=== PATIENT | female | born 1935 | race Caucasian/White ===

== ENCOUNTER 2018-12-28 06:22 | Inpatient (IN) | payer OTHER, MEDICARE ==
[~2018-12-28 06:22] MED LIST: ACETAMINOPHEN 325 MG TABLET PO PRN; CEFAZOLIN SODIUM 2 GM in DEXTROSE 5%-WATER 100 ML IV PRN; CELECOXIB 200 MG CAPSULE PO PRN; GABAPENTIN 100 MG CAPSULE PO PRN; LACTATED RINGERS 1000 ML IV PRN; LIDOCAINE 0.5% INJ-PF (5 MG/ML) 50 ML SDV SUBCUT PRN; ONDANSETRON HCL INJ/PF 4 MG/2 ML SDV IV PRN; OXYCODONE HCL SR 10 MG TABLET PO PRN; SCOPOLAMINE HYDROBROMIDE 1.5 MG PATCH.TD72 TD PRN; TRAMADOL HCL 50 MG TABLET PO PRN; TRANEXAMIC ACID 1,000 MG in DEXTROSE 5%-WATER 50 ML IV PRN; TRANEXAMIC ACID INJ/PF 1,000 MG/10 ML SDV IV PRN; VANCOMYCIN HCL 1,000 MG in DEXTROSE 5%-WATER 250 ML IV PRN
[2018-12-28] MEDS ORDERED: CLINDAMYCIN 900 MG/D5W RTU 900 MG/50 ML RTUPB IV PRN (11:02)
[2018-12-28] MEDS ORDERED: ONDANSETRON HCL INJ/PF 4 MG/2 ML SDV ONE ×2 (11:35→12:15)
[2018-12-28] MEDS ORDERED: TRAMADOL HCL 50 MG TABLET ONE (11:35)
[2018-12-28] MEDS ORDERED: OXYCODONE HCL SR 10 MG TABLET PO ONE (11:35)
[2018-12-28] MEDS ORDERED: GABAPENTIN 100 MG CAPSULE ONE (11:35)
[2018-12-28] MEDS ORDERED: ACETAMINOPHEN 325 MG TABLET ONE (11:35)
[2018-12-28] MEDS ORDERED: CLINDAMYCIN 900 MG/D5W RTU 900 MG/50 ML RTUPB IV ONE (11:36)
[2018-12-28] MEDS ORDERED: KETAMINE HCL INJ 500 MG/10 ML VIAL ONE (12:05)
[2018-12-28] MEDS ORDERED: EPINEPHRINE INJ/PF 1 MG/1 ML AMPULE ONE (12:05)
[2018-12-28] MEDS ORDERED: FENTANYL CITRATE INJ/PF 100 MCG/2 ML AMPUL ONE (12:06)
[2018-12-28] MEDS ORDERED: MIDAZOLAM 2 MG/2 ML INJ ONE (12:06)
[2018-12-28] MEDS ORDERED: PROPOFOL INJ 200 MG/20 ML VIAL IV ONE (12:07)
[2018-12-28] MEDS ORDERED: BUPIVACAINE HCL 0.25 % INJ/PF (2.5 MG/1 ML) 30 ML VIAL ONE (12:08)
[2018-12-28] MEDS ORDERED: VANCOMYCIN HCL INJ 1000 MG VIAL ONE (12:08)
[2018-12-28] MEDS ORDERED: GENTAMICIN SULFATE INJ 80 MG/2 ML VIAL ONE (12:09)
[2018-12-28] MEDS ORDERED: BACITRACIN INJ 50,000 UNIT VIAL ONE (12:09)
[2018-12-28] MEDS ORDERED: KETOROLAC TROMETHAMINE 60 MG/2 ML SDV ONE (12:10)
[2018-12-28] MEDS ORDERED: TRANEXAMIC ACID INJ/PF 1,000 MG/10 ML SDV ONE ×2 (12:15→15:08)
[2018-12-28] MEDS ORDERED: BACITRACIN INJ 50,000 UNIT VIAL IR ONE (13:37)
[2018-12-28] MEDS ORDERED: GENTAMICIN SULFATE INJ 80 MG/2 ML VIAL IV ONE (13:38)
[2018-12-28] MEDS ORDERED: BUPIVACAINE HCL 0.5 % INJ/PF 30 ML SDV INJ ONE (13:38)
[2018-12-28] MEDS ORDERED: KETOROLAC TROMETHAMINE INJ/PF 30 MG/1 ML SDV INJ ONE (13:39)
[2018-12-28] MEDS ORDERED: PROMETHAZINE HCL INJ 25 MG/1 ML VIAL IV PRN ×2 (14:36)
[2018-12-28] MEDS ORDERED: MEPERIDINE HCL/PF INJ 25 MG/1 ML DISP.SYRIN IV PRN (14:36)
[2018-12-28] MEDS ORDERED: FENTANYL CITRATE INJ/PF 100 MCG/2 ML AMPUL IV PRN ×3 (14:36)
[2018-12-28] MEDS ORDERED: DIPHENHYDRAMINE HCL 50 MG/ML VIAL IV PRN (14:36)
[2018-12-28] MEDS ORDERED: MORPHINE SULFATE 10 MG/ML INJ IV PRN (14:36)
[2018-12-28] MEDS ORDERED: DIPHENHYDRAMINE HCL 25 MG CAPSULE PO PRN (14:39)
[2018-12-28] MEDS ORDERED: (PENDING PHARMACY ID) (Fluticasone Propionate [Flonase Allergy Relief] 2 SPRAY) NASL PRN (14:39)
[2018-12-28] MEDS ORDERED: LEVALBUTEROL HCL NEB 0.63 MG/3 ML AMPUL NEB PRN (14:39)
--- NOTE | 2018-12-28 14:43 | RADIOLOGY REPORT (SQ) ---
EXAM DESCRIPTION: NO CHG FLUORO; HIP IN OPERATING RM COMPLETED DATE/TIME: 12/28/2018 2:31 pm REASON FOR STUDY: RIGHT HIP TOTAL ARTHOPLASTY, ASSISTED WITH FLUORO IN OR COMPARISON: None. FLUOROSCOPY TIME: No recorded fluoro time 3 Images saved to PACS LIMITATIONS: None. PROCEDURE: Right total hip replacement FINDINGS: Images from fluoro document right total hip replacement. IMPRESSION: Total hip replacement. Refer to operative note for further information. COMMENT: PQRS 6045F: Fluoroscopy time of the procedure is documented in the report. TECHNICAL DOCUMENTATION: JOB ID: [id number] [employer]- All Rights Reserved Reading location - IP/workstation name: [email or web address]
--- NOTE | 2018-12-28 14:43 | RADIOLOGY REPORT (SQ) ---
EXAM DESCRIPTION: NO CHG FLUORO; HIP IN OPERATING RM COMPLETED DATE/TIME: 12/28/2018 2:31 pm REASON FOR STUDY: RIGHT HIP TOTAL ARTHOPLASTY, ASSISTED WITH FLUORO IN OR COMPARISON: None. FLUOROSCOPY TIME: No recorded fluoro time 3 Images saved to PACS LIMITATIONS: None. PROCEDURE: Right total hip replacement FINDINGS: Images from fluoro document right total hip replacement. IMPRESSION: Total hip replacement. Refer to operative note for further information. COMMENT: PQRS 6045F: Fluoroscopy time of the procedure is documented in the report. TECHNICAL DOCUMENTATION: JOB ID: [id number] [employer]- All Rights Reserved Reading location - IP/workstation name: [email or web address]
[2018-12-28] MEDS ORDERED: ACETAMINOPHEN 325 MG TABLET PO SCH (14:45)
[2018-12-28] MEDS ORDERED: (PENDING PHARMACY ID) (Ranitidine Hcl [Zantac] 150 MG) PO PRN (14:45)
--- NOTE | 2018-12-28 15:08 | Operative Report ---
Operative Report DATE OF SURGERY: 12/28/18 PREOPERATIVE DIAGNOSIS: Right hip primary osteoarthritis POSTOPERATIVE DIAGNOSIS: Right hip primary osteoarthritis OPERATION: Right total hip arthroplasty SURGEON: DAVID BELL JR ANESTHESIA: Spinal COMPLICATIONS: None ESTIMATED BLOOD LOSS: 150 cc PROCEDURE: BRIEF HISTORY: 83year old female with severe degenerative arthritis of right hip, which has failed conservative treatment and has elected for a total hip arthroplasty due to loss of her ability to perform activities of daily living and her difficulty with ambulation, leading to a decreased quality of life. X- rays revealed [id number] osteoarthritis with subchondral sclerosis joint space narrowing and osteophyte formation. Risks include but are not limited to bleeding, infection, anesthesia, , injury to nerve or vessel, pain, scar, leg length inequality, dislocation, future surgery, and blood clots. Patient read through the pre-op counseling form and signed and solicited for surgery on their right hip. OPERATIVE PROCEDURE: Patient was brought to the operating room on and underwent spinal anesthesia. Clindamycin and 1 g vancomycin was given. After proper anesthesia was obtained, patient was positioned, padded, prepped, and draped in the usual sterile fashion on the operating room table. Appropriate time out was performed. A anterior approach to the hip was undertaken with meticulous hemostasis. The femoral neck was cut in line with the femoral broach and the femoral head was removed. The acetabulum was then exposed with three retractors in an atraumatic fashion. Soft tissue and osteophytes were removed. Medialization reaming was performed followed by anatomic reaming up to accept a 48 mm acetabulum. The 48 mm acetabulum was impacted into correct position and stability checked with Richard test. A 36 liner was impacted into the shell with good stability. Potential impinging osteophytes were removed. Attention was then directed toward the femur, which was exposed with two retractors in an atraumatic fashion. molded rubber goods cutter, lateralization rasping and then broaching up to accept a 5 femur. With a 127 offset neck and a -5 head, stability was good in flexion and extension with equal leg lengths. The real lateral offset femur was impacted into a copiously irrigated femoral canal. A 36, -5 mm head was impacted on a clean dry femoral taper. The hip was irrigated and reduced, further irrigation with antibiotic solution, betadine solution, then antibiotic solution. Bleeders were coagulated with bovie cautery. The fascia was then closed with number 2 Stratofix; the subcutaneous tissue closed with interrupted 2-0 Vicryl then running 3-0 monocryl subcuticular. Dermabond skin glue was applied followd by a silver dressing. All needle sponge and instrument counts were correct. Patient was awakened from sedation anesthesia and taken to recovery room in good condition. Thank you, David Bell, DO
--- NOTE | 2018-12-28 15:30 | RADIOLOGY REPORT (SQ) ---
EXAM DESCRIPTION: PELVIS AP COMPLETED DATE/TIME: 12/28/2018 3:23 pm REASON FOR STUDY: post op M16.11 UNILATERAL PRIMARY OSTEOARTHRITIS, RIGHT HIP COMPARISON: None. NUMBER OF VIEWS: One view TECHNIQUE: Digital radiographic images of the pelvis post-procedure LIMITATIONS: None. FINDINGS: BONES: No worrisome or unexpected findings post-procedure. DEVICE: There is been a total right hip arthroplasty. SOFT TISSUES: No worrisome findings. Expected postoperative soft tissue changes. IMPRESSION: Satisfactory postoperative right hip. TECHNICAL DOCUMENTATION: JOB ID: [id number] [employer]- All Rights Reserved Reading location - IP/workstation name: [email or web address]
[2018-12-28] MEDS ORDERED: PROMETHAZINE HCL INJ 25 MG/1 ML VIAL ONE (15:50)
--- NOTE | 2018-12-28 17:54 | PDOC CONSULTATION ---
Consultation Consult Date: 12/28/18 Attending physician:: CITLALY BELL JR Provider Consulted: JOVON NUNN Consult reason:: post-op History of Present Illness Admission Date/PCP: 12/28/18 09:58 History of Present Illness: RALPH MICHAEL is a 83 year old female who had a right hip replacement today with Dr. Bell. According to the report, she had a fairly uncomplicated course. Consult reasons as postop but I am assuming that this is for medical management. When I got up in the room to see the patient, she was about to do some physical therapy and she tolerated her short session fairly well. She has no complaints at this time. Past Medical History Cardiac Medical History: Denies: Myocardial Infarction, Hyperlipidema, Hypertension, Pulmonary Embolism Pulmonary Medical History: Reports: Chronic Obstructive Pulmonary Disease (COPD), Sleep Apnea - uses CPAP Denies: Asthma, Bronchitis, Pneumonia, Respiratory Failure, Tuberculosis Neurological Medical History: Denies: Seizures Endocrine Medical History: Denies: Hyperthyroidism, Hypothyroidism Renal/ Medical History: Denies: End Stage Renal Disease Malignancy Medical History: Denies: Leukemia, Lung Cancer GI Medical History: Reports: Gastroesophageal Reflux Disease Denies: Crohn's Disease, Hiatal Hernia Musculoskeltal Medical History: Reports: Arthritis Denies: Fibromyalgia Psychiatric Medical History: Denies: Bipolar Disorder, Depression, Post Traumatic Stress Disorder Hematology: Reports: Anemia - off and on Denies: Hemophilia, Sickle Cell Disease Infectious Medical History: Denies: HIV Past Surgical History Past Surgical History: Reports: Cholecystectomy, Tonsillectomy Denies: Amputation, Appendectomy, Section, Colostomy, Coronary Artery Bypass Graft, Gastric Bypass Surgery, Herniorrhaphy, Hysterectomy, Mastectomy, Pacemaker, Tubal Ligation Social History Smoking Status: Former Smoker Hx Recreational Drug Use: No Hx Prescription Drug Abuse: No - Advance Directive Resuscitation Status: Full Code Family History Parental Family History Reviewed: Yes Children Family History Reviewed: Yes Sibling(s) Family History Reviewed.: Yes Medication/Allergy Home Medications: Acetaminophen [Tylenol] 650 mg PO DAILY 12/21/18 Aclidinium [place] [Tudorza Pressair] 1 puff IN DAILY 12/21/18 Budesonide/Formoterol Fumarate [Symbicort HFA 160-4.5 mcg Inhaler 6 gm] 2 puff IN DAILY 12/21/18 Diclofenac Sodium [Voltaren] 1 dose TOP ASDIR PRN 12/21/18 Diphenhydramine HCl [Benadryl] 25 mg PO PRN PRN 12/21/18 Ergocalciferol (Vitamin D2) [Vitamin D2] 1.25 mg PO DAILY 12/21/18 Fexofenadine HCl [Daphnie] 180 mg PO DAILY 12/21/18 Fluticasone Propionate [Flonase Allergy Relief] 1 spray NAREB PRN PRN 12/21/18 Levalbuterol HCl 1 puff IN PRN PRN 12/21/18 Ranitidine HCl [Zantac] 150 mg PO DAILY 12/21/18 Zolpidem Tartrate [Ambien 5 mg Tablet] 5 mg PO QHS 12/21/18 Allergies/Adverse Reactions: amoxicillin Allergy (Verified 12/28/18 10:33) Sneezing cephalexin Allergy (Verified 12/28/18 10:33) Sneezing ciprofloxacin [From Cipro] Allergy (Verified 12/28/18 10:33) doxycycline Allergy (Verified 12/28/18 10:33) fluticasone [From Advair Diskus] Allergy (Verified 12/28/18 10:33) lactase [From Dairy Aid] Allergy (Verified 12/28/18 10:33) methylprednisolone Allergy (Verified 12/28/18 10:33) Penicillins Allergy (Verified 12/28/18 10:33) salmeterol [From Advair Diskus] Allergy (Verified 12/28/18 10:33) Sulfa (Sulfonamide Antibiotics) Allergy (Verified 12/28/18 10:33) Tetanus Vaccines and Toxoid Allergy (Verified 12/28/18 10:33) Yeast Allergy (Verified 12/28/18 10:33) Review of Systems All systems: reviewed and no additional remarkable complaints except as stated - All systems were reviewed and were negative except as noted in the HPI Physical Exam Vital Signs: Temp Pulse Resp BP Pulse Ox 97.7 F 67 16 128/48 H 96 12/28/18 14:28 12/28/18 16:28 12/28/18 16:28 12/28/18 16:28 12/28/18 16:28 Intake & Output 12/27/18 12/28/18 12/29/18 06:59 06:59 06:59 Intake Total 1700 Output Total 150 Balance 1550 General appearance: PRESENT: no acute distress, cooperative, disheveled, thin Head exam: PRESENT: atraumatic, normocephalic Eye exam: PRESENT: EOMI, PERRLA. ABSENT: conjunctival injection, nystagmus, scleral icterus Ear exam: PRESENT: normal external ear exam Mouth exam: PRESENT: moist, neck supple Throat exam: ABSENT: post pharyngeal erythema Neck exam: PRESENT: full ROM. ABSENT: carotid bruit, JVD, lymphadenopathy, meningismus, tenderness, thyromegaly Respiratory exam: PRESENT: clear to auscultation rodrigo, symmetrical, unlabored. ABSENT: accessory muscle use, chest wall tenderness, crackles, prolonged expiratory phas, rhonchi, tachypnea, wheezes Cardiovascular exam: PRESENT: RRR, +S1, +S2 Pulses: PRESENT: normal carotid pulses, normal femoral pulses GI/Abdominal exam: PRESENT: normal bowel sounds, soft. ABSENT: distended, guarding, rebound, tenderness Extremities exam: ABSENT: clubbing, pedal edema Musculoskeletal exam: PRESENT: ambulatory - With a walker and standby assistance, other - She had a rather impressive kyphosis, as well as what appeared to be a bit of dextroscoliosis with her pelvis tilted a bit to the left and her left leg below the knee seemed to display a varus deformity Neurological exam: PRESENT: alert, awake, oriented to person, oriented to place, oriented to situation, CN II-XII grossly intact. ABSENT: motor sensory deficit Psychiatric exam: PRESENT: appropriate affect, normal mood Skin exam: PRESENT: dry, warm Results Impressions: Fluoroscopy 12/28/18 00:00 IMPRESSION: Total hip replacement. Refer to operative note for further information. Hip X-Ray 12/28/18 00:00 IMPRESSION: Total hip replacement. Refer to operative note for further information. Pelvis X-Ray 12/28/18 00:00 IMPRESSION: Satisfactory postoperative right hip. Assessment and Plan - Diagnosis (1) COPD (chronic obstructive pulmonary disease) Qualifiers: COPD type: chronic bronchitis Chronic bronchitis type: simple Qualified Code(s): J41.0 - Simple chronic bronchitis Is this a current diagnosis for this admission?: Yes Plan: We will continue her home medications (2) Gastroesophageal reflux Qualifiers: Esophagitis presence: without esophagitis Qualified Code(s): K21.9 - Gastro-esophageal reflux disease without esophagitis Is this a current diagnosis for this admission?: Yes Plan: Continue home medications (3) Environmental allergies Is this a current diagnosis for this admission?: Yes Plan: Continue home medications (4) Status post total hip replacement, right Is this a current diagnosis for this admission?: Yes Plan: Per orthopedics - Time Time Spent with patient: 35 or more minutes
[2018-12-28] MEDS ORDERED: FLUTICASONE NASAL SPRAY 50 MCG/SPRY 120 SPRAY/16 GM NASL PRN (20:42)
[2018-12-28] MEDS ORDERED: LORATADINE 10 MG TABLET PO PRN (20:47)
[2018-12-28] MEDS: ZOLPIDEM TARTRATE 5 MG TABLET PO SCH (21:42)
[2018-12-28] MEDS ORDERED: INFLUENZA QUAD (6MOS+) 2019-20 VAC 0.5 ML SYR IM ONE (21:53)
[2018-12-29] MEDS ORDERED: (PENDING PHARMACY ID) (Ergocalciferol (Vitamin D2) [Vitamin D2] 1.25 MG) PO SCH (10:00)
[2018-12-29] MEDS ORDERED: (PENDING PHARMACY ID) (Aclidinium Bromide [Tudorza Pressair] 1 PUFF) IH SCH (10:00)
--- NOTE | 2018-12-29 10:15 | PDOC PROGRESS REPORT ---
Subjective Progress Note for:: 12/29/18 Reason For Visit: S/P RIGHT TOTAL HIP ARTHROPLASTY 12/29/2018 Patient was admitted to the hospital for right hip arthroplasty. She is being seen by the hospitalist for medical management. Patient's chart reviewed. Patient seen this morning while ambulating with the assistance of physical therapy Physical Exam Vital Signs: Temp Pulse Resp BP Pulse Ox 99.5 F 95 24 H 93/55 L 90 L 12/29/18 09:00 12/29/18 09:00 12/29/18 09:00 12/29/18 09:00 12/29/18 09:00 Intake & Output 12/28/18 12/29/18 12/30/18 06:59 06:59 06:59 Intake Total 2940 Output Total 150 Balance 2790 Weight 58.7 kg General appearance: PRESENT: no acute distress Respiratory exam: PRESENT: clear to auscultation rodrigo, other - Patient does not appear to be short of breath while using the walker. ABSENT: rales, rhonchi, wheezes Cardiovascular exam: PRESENT: RRR. ABSENT: diastolic murmur, rubs, systolic murmur Neurological exam: PRESENT: alert, awake, oriented to person, oriented to place, oriented to time, oriented to situation, CN II-XII grossly intact. ABSENT: motor sensory deficit Psychiatric exam: PRESENT: appropriate affect, normal mood. ABSENT: homicidal ideation, suicidal ideation Results Impressions: Fluoroscopy 12/28/18 00:00 IMPRESSION: Total hip replacement. Refer to operative note for further information. Hip X-Ray 12/28/18 00:00 IMPRESSION: Total hip replacement. Refer to operative note for further information. Pelvis X-Ray 12/28/18 00:00 IMPRESSION: Satisfactory postoperative right hip. Assessment and Plan - Diagnosis (1) COPD (chronic obstructive pulmonary disease) Qualifiers: COPD type: chronic bronchitis Chronic bronchitis type: simple Qualified Code(s): J41.0 - Simple chronic bronchitis Is this a current diagnosis for this admission?: Yes (2) Gastroesophageal reflux Qualifiers: Esophagitis presence: without esophagitis Qualified Code(s): K21.9 - Gastro-esophageal reflux disease without esophagitis Is this a current diagnosis for this admission?: Yes (3) Status post total hip replacement, right Is this a current diagnosis for this admission?: Yes - Plan Summary Summary: 12/29/2018 Patient remains afebrile, blood pressure appears stable averaging around 145/50 no blood pressure medication Patient's only meds from home appear to be for her COPD Patient's O2 sats remain in the mid 90s on room air. I do not think patient will qualify for home O2, it would be difficult to get a true assessment now that she is recovering from hip surgery with a walker Patient appears as though she will benefit from rehab at the time of discharge. Will follow patient with orthopedics until patient is further stabilized. - Time Time Spent with patient: 25-34 minutes
--- NOTE | 2018-12-29 11:12 | PDOC PROGRESS REPORT ---
Subjective Progress Note for:: 12/29/18 Subjective:: Patient is doing very well this morning. She does report some ache in the hip but not as much as she is expected. Otherwise no acute events overnight she is been ambulating without problems and overall has no other new complaints or symptoms. Reason For Visit: S/P RIGHT TOTAL HIP ARTHROPLASTY Physical Exam Vital Signs: Temp Pulse Resp BP Pulse Ox 99.5 F 95 24 H 93/55 L 90 L 12/29/18 09:00 12/29/18 09:00 12/29/18 09:00 12/29/18 09:00 12/29/18 09:00 Intake & Output 12/28/18 12/29/18 12/30/18 06:59 06:59 06:59 Intake Total 2940 Output Total 150 Balance 2790 Weight 58.7 kg Physical Exam: General appearance: PRESENT: no acute distress, cooperative, well-nourished Head exam: PRESENT: atraumatic, normocephalic Eye exam: PRESENT: EOMI Ear exam: PRESENT: normal external ear exam Mouth exam: PRESENT: neck supple Neck exam: ABSENT: tracheal deviation Respiratory exam: PRESENT: symmetrical, unlabored. ABSENT: accessory muscle use, wheezes Pulses: PRESENT: normal radial pulses, normal dorsalis pedis pul Vascular exam: PRESENT: normal capillary refill GI/Abdominal exam: ABSENT: distended, firm Extremities exam: PRESENT: full ROM of bilateral shoulders, elbows wrists, knees, hips and ankles without pain Musculoskeletal exam: PRESENT: full ROM, normal inspection of all 4 extremities aside from that noted below. Neurological exam: PRESENT: alert, awake, oriented to person, oriented to place, oriented to time Psychiatric exam: PRESENT: appropriate affect. ABSENT: agitated Focused psych exam: ABSENT: catatonic Skin exam: PRESENT: intact. ABSENT: dry All as above aside from that noted in the HPI and the following: Right lower extremity -Pulses 2+ distally -Compartments soft -Wound clean dry and intact no drainage in appropriate swelling for postop day -Sensation grossly intact to L3-4-5 S1 -Motor grossly intact to EHL TA gastroc and quad - Able to perform quad extension and elevate heel off of bed. Results Impressions: Fluoroscopy 12/28/18 00:00 IMPRESSION: Total hip replacement. Refer to operative note for further information. Hip X-Ray 12/28/18 00:00 IMPRESSION: Total hip replacement. Refer to operative note for further information. Pelvis X-Ray 12/28/18 00:00 IMPRESSION: Satisfactory postoperative right hip. Assessment & Plan - Diagnosis (1) Status post total hip replacement, right Is this a current diagnosis for this admission?: Yes Plan: -She is orthopedically stable for discharge today depending on placement, if she insists upon going to rehab that she will need to stay further for insurance purposes. -2 doses of Clindamycin postoperatively q 8 hours to complete 24 hours perioperatively -Weightbearing as tolerated, no precautions, encourage out of bed KARLY for ADL training - PT/OT -aspirin 325 daily for DVT prophylaxis for 6 weeks -multimodal pain management to avoid excessive narcotics, including gabapentin, tramadol, Toradol, acetaminophen. -Dressing should not be removed for 7 to 10 days until seen in the office -May shower with the dressing intact, if it starts to come off she should not get the incision wet. -I would like to follow the patient my office within the next 7 to [address] at [address] [place] [address]. in [place] office #: [phone] - Time Time Spent with patient: Less than 15 minutes
[2018-12-29] MEDS ORDERED: OXYCODONE HCL IR 5 MG TABLET PO PRN ×2 (11:37→11:40)
[2018-12-29] MEDS ORDERED: MORPHINE SULFATE 10 MG/ML INJ IV PRN (11:42)
[2018-12-29] MEDS ORDERED: TRAMADOL HCL 50 MG TABLET PO PRN (11:43)
[2018-12-29] MEDS ORDERED: DIPHENHYDRAMINE HCL 25 MG CAPSULE PO PRN (11:52)
[2018-12-29] MEDS ORDERED: DOCUSATE SODIUM 100 MG CAPSULE PO PRN (11:56)
[2018-12-29] MEDS ORDERED: ONDANSETRON HCL 8 MG TABLET PO PRN (11:57)
[2018-12-29] MEDS ORDERED: PANTOPRAZOLE SODIUM 20 MG TABLET.DR PO ONE ×2 (12:30→14:45)
[2018-12-29] MEDS ORDERED: ONDANSETRON 4 MG TAB.RAPDIS PO PRN (12:32)
[2018-12-29] MEDS: NORMAL SALINE 1000 ML 1,000 ML IV PRN (12:35)
[2018-12-29] MEDS: FLUTICASONE/VILANTEROL 200-25 MCG/DOSE IH SCH (14:22)
[2018-12-29] MEDS: ACETAMINOPHEN 325 MG TABLET PO SCH ×2 (14:41→21:57)
[2018-12-29] MEDS: KETOROLAC TROMETHAMINE INJ/PF 30 MG/1 ML SDV IV SCH ×2 (14:42→21:56)
[2018-12-29] MEDS: CEFAZOLIN SODIUM 2 GM in DEXTROSE 5%-WATER 100 ML IV SCH ×2 (14:43→21:56)
[2018-12-29] MEDS ORDERED: POLYETHYLENE GLYCOL 3350 POWDER 17 GM/1 PACKET PO ONE (17:15)
[2018-12-29] MEDS: GABAPENTIN 100 MG CAPSULE PO SCH (17:46)
[2018-12-29] MEDS: ZOLPIDEM TARTRATE 5 MG TABLET PO SCH (21:58)
[2018-12-30] MEDS: NORMAL SALINE 1000 ML 1,000 ML IV PRN (02:17)
[2018-12-30] MEDS: KETOROLAC TROMETHAMINE INJ/PF 30 MG/1 ML SDV IV SCH ×2 (05:46→14:24)
[2018-12-30] MEDS: ACETAMINOPHEN 325 MG TABLET PO SCH ×3 (05:46→22:15)
--- NOTE | 2018-12-30 08:31 | PDOC PROGRESS REPORT ---
Subjective Subjective:: Patient is doing very well this morning. She does report some ache in the hip but not as much as she is expected. Otherwise no acute events overnight she is been ambulating without problems and overall has no other new complaints or symptoms. She was walking well yesterday with PT and now able to put more weight on the leg than she was able to prior to surgery, according to her. Reason For Visit: S/P RIGHT TOTAL HIP ARTHROPLASTY Physical Exam Vital Signs: Temp Pulse Resp BP Pulse Ox 98.5 F 83 18 121/47 L 93 12/29/18 17:00 12/29/18 17:00 12/29/18 17:00 12/29/18 17:00 12/29/18 17:00 Intake & Output 12/29/18 12/30/18 12/31/18 06:59 06:59 06:59 Intake Total 2940 1820 Output Total 150 Balance 2790 1820 Weight 58.7 kg Physical Exam: General appearance: PRESENT: no acute distress, cooperative, well-nourished Head exam: PRESENT: atraumatic, normocephalic Eye exam: PRESENT: EOMI Ear exam: PRESENT: normal external ear exam Mouth exam: PRESENT: neck supple Neck exam: ABSENT: tracheal deviation Respiratory exam: PRESENT: symmetrical, unlabored. ABSENT: accessory muscle use, wheezes Pulses: PRESENT: normal radial pulses, normal dorsalis pedis pul Vascular exam: PRESENT: normal capillary refill GI/Abdominal exam: ABSENT: distended, firm Extremities exam: PRESENT: full ROM of bilateral shoulders, elbows wrists, knees, hips and ankles without pain Musculoskeletal exam: PRESENT: full ROM, normal inspection of all 4 extremities aside from that noted below. Neurological exam: PRESENT: alert, awake, oriented to person, oriented to place, oriented to time Psychiatric exam: PRESENT: appropriate affect. ABSENT: agitated Focused psych exam: ABSENT: catatonic Skin exam: PRESENT: intact. ABSENT: dry All as above aside from that noted in the HPI and the following: Right lower extremity -Pulses 2+ distally -Compartments soft -Wound clean dry and intact no drainage in appropriate swelling for postop day -Sensation grossly intact to L3-4-5 S1 -Motor grossly intact to EHL TA gastroc and quad - Able to perform quad extension and elevate heel off of bed. Results Impressions: Fluoroscopy 12/28/18 00:00 IMPRESSION: Total hip replacement. Refer to operative note for further information. Hip X-Ray 12/28/18 00:00 IMPRESSION: Total hip replacement. Refer to operative note for further information. Pelvis X-Ray 12/28/18 00:00 IMPRESSION: Satisfactory postoperative right hip. Assessment & Plan - Diagnosis (1) Status post total hip replacement, right Is this a current diagnosis for this admission?: Yes Plan: -She is orthopedically stable for discharge today depending on placement, if she insists upon going to rehab that she will need to stay further for insurance purposes. -Perioperative antibiotics completed -Weightbearing as tolerated, no precautions, encourage out of bed KARLY for ADL training - PT/OT -aspirin 325 daily for DVT prophylaxis for 6 weeks -multimodal pain management to avoid excessive narcotics, including gabapentin, tramadol, Toradol, acetaminophen. -Dressing should not be removed for 7 to 10 days until seen in the office -May shower with the dressing intact, if it starts to come off she should not get the incision wet. -I would like to follow the patient my office within the next 7 to [address] days at [address] [place] [address]. in [place] office #: [phone] - Time Time Spent with patient: Less than 15 minutes
[2018-12-30 08:34] LABS: ABSOLUTE BASOPHILS # (AUTO) 0.1 10^3/uL (0.0-0.2); ABSOLUTE EOSINOPHILS # (AUTO) 0.4 10^3/uL (0.0-0.6); ABSOLUTE LYMPHOCYTES (AUTO) 0.9 10^3/uL (0.5-4.7); ABSOLUTE MONOCYTES (AUTO) 0.7 10^3/uL (0.1-1.4); ABSOLUTE NEUT (AUTO) 4.3 10^3/uL (1.7-8.2); BASOPHILS % (AUTO) 0.9 % (0-2); EOSINOPHILS % (AUTO) 6.1 % (0-6); HEMATOCRIT 22.1 % (36.0-47.0); LYMPHOCYTES % (AUTO) 13.4 % (13-45); MEAN CORPUSCULAR HEMOGLOBIN 32.9 pg (27.0-33.4); MEAN CORPUSCULAR HGB CONC 33.7 g/dL (32.0-36.0); MEAN CORPUSCULAR VOLUME 98 fl (80-97); PLATELET COUNT 112 10^3/uL (150-450); RED BLOOD COUNT 2.26 10^6/uL (3.72-5.28); RED CELL DISTRIBUTION WIDTH 13.4 % (11.5-14.0); SEGMENTED NEUTROPHILS % (AUTO) 68.6 % (42-78); TOTAL CELLS COUNTED % (AUTO) 100 %; WHITE BLOOD COUNT 6.3 10^3/uL (4.0-10.5)
[2018-12-30 08:43] LABS: HEMOGLOBIN 7.4 g/dL (12.0-15.5)
[2018-12-30 09:02] LABS: ANION GAP 7 (5-19); BLOOD UREA NITROGEN 13 mg/dL (7-20); CARBON DIOXIDE 23 mmol/L (22-30); CHLORIDE 109 mmol/L (98-107); GLUCOSE 86 mg/dL (75-110); POTASSIUM 3.8 mmol/L (3.6-5.0)
[2018-12-30] MEDS: POLYETHYLENE GLYCOL 3350 POWDER 17 GM/1 PACKET PO SCH (10:40)
[2018-12-30] MEDS: GABAPENTIN 100 MG CAPSULE PO SCH ×2 (10:40→20:20)
[2018-12-30] MEDS: ASPIRIN 325 MG TABLET PO SCH ×2 (10:40→10:47)
[2018-12-30] MEDS: FLUTICASONE/VILANTEROL 200-25 MCG/DOSE IH SCH ×2 (10:41→10:51)
[2018-12-30] MEDS ORDERED: FLUTICASONE NASAL SPRAY 50 MCG/SPRY 120 SPRAY/16 GM NASL PRN (10:43)
[2018-12-30] MEDS: CELECOXIB 200 MG CAPSULE PO SCH (10:43)
[2018-12-30] MEDS ORDERED: LEVALBUTEROL HCL NEB 0.63 MG/3 ML AMPUL NEB PRN (10:43)
--- NOTE | 2018-12-30 10:43 | PDOC PROGRESS REPORT ---
Subjective Progress Note for:: 12/30/18 Reason For Visit: S/P RIGHT TOTAL HIP ARTHROPLASTY 12/30/2018 Status post right total hip arthroplasty on December 28/2019 Physical Exam Vital Signs: Temp Pulse Resp BP Pulse Ox 98.5 F 83 18 121/47 L 93 12/29/18 17:00 12/29/18 17:00 12/29/18 17:00 12/29/18 17:00 12/29/18 17:00 Intake & Output 12/29/18 12/30/18 12/31/18 06:59 06:59 06:59 Intake Total 2940 1820 Output Total 150 Balance 2790 1820 Weight 58.7 kg General appearance: PRESENT: no acute distress, other - Patient is up and ambulatory with less pain than prior to surgery Respiratory exam: PRESENT: clear to auscultation rodrigo. ABSENT: rales, rhonchi, wheezes Cardiovascular exam: PRESENT: RRR. ABSENT: diastolic murmur, rubs, systolic murmur Neurological exam: PRESENT: alert, awake, oriented to person, oriented to place, oriented to time, oriented to situation, CN II-XII grossly intact. ABSENT: mot or sensory deficit Psychiatric exam: PRESENT: appropriate affect, normal mood. ABSENT: homicidal ideation, suicidal ideation Results Laboratory Results: 12/30/18 08:01 12/30/18 08:01 12/30/18 12/30/18 08:01 08:01 WBC 6.3 RBC 2.26 L Hgb 7.4 L Hct 22.1 L MCV 98 H MCH 32.9 MCHC 33.7 RDW 13.4 Plt Count 112 L Seg Neutrophils % 68.6 Sodium 138.6 Potassium 3.8 Chloride 109 H Carbon Dioxide 23 Anion Gap 7 BUN 13 Creatinine 0.86 Est GFR ( Amer) > 60 Glucose 86 Calcium 8.0 L Impressions: Fluoroscopy 12/28/18 00:00 IMPRESSION: Total hip replacement. Refer to operative note for further infor mation. Hip X-Ray 12/28/18 00:00 IMPRESSION: Total hip replacement. Refer to operative note for further information. Pelvis X-Ray 12/28/18 00:00 IMPRESSION: Satisfactory postoperative right hip. Assessment and Plan - Diagnosis (1) COPD (chronic obstructive pulmonary disease) Qualifiers: COPD type: chronic bronchitis Chronic bronchitis type: simple Qualified Code(s): J41.0 - Simple chronic bronchitis Is this a current diagnosis for this admission?: Yes (2) Gastroesophageal reflux Qualifiers: Esophagitis presence: without esophagitis Qualified Code(s): K21.9 - Gastro-esophageal reflux disease without esophagitis Is this a current diagnosis for this admission?: Yes (3) Status post total hip replacement, right Is this a current diagnosis for this admission?: Yes - Plan Summary Summary: 12/29/2018 Patient remains afebrile, blood pressure appears stable averaging around 145/50 no blood pressure medication Patient's only meds from home appear to be for her COPD Patient's O2 sats remain in the mid 90s on room air. I do not think patient will qualify for home O2, it would be difficult to get a true assessment now that she is recovering from hip surgery with a walker Patient appears as though she will benefit from rehab at the time of discharge. Will follow patient with orthopedics until patient is further stabilized. 12/30/2018 She has 1 more night to night to qualify in hospital for rehab and potential discharge tomorrow Follow orthopedics recommendations concerning wound care We will add patient's nebulizer at the bedside PRN as well as her Adderall - Time Time Spent with patient: 25-34 minutes
[2018-12-30] MEDS ORDERED: LEVALBUTEROL HCL NEB 1.25 MG/3 ML AMPUL NEB PRN (11:10)
[2018-12-30] MEDS: ZOLPIDEM TARTRATE 5 MG TABLET PO SCH (22:15)
[2018-12-31] MEDS: ACETAMINOPHEN 325 MG TABLET PO SCH ×3 (07:00→22:03)
[2018-12-31] MEDS ORDERED: LOPERAMIDE HCL 2 MG CAPSULE PO PRN (08:03)
[2018-12-31] MEDS: ASPIRIN 325 MG TABLET PO SCH (09:45)
[2018-12-31] MEDS: CELECOXIB 200 MG CAPSULE PO SCH (09:46)
[2018-12-31] MEDS: GABAPENTIN 100 MG CAPSULE PO SCH ×2 (09:46→19:33)
[2018-12-31] MEDS: FLUTICASONE/VILANTEROL 200-25 MCG/DOSE IH SCH (09:51)
[2018-12-31] MEDS: POLYETHYLENE GLYCOL 3350 POWDER 17 GM/1 PACKET PO SCH (09:59)
--- NOTE | 2018-12-31 12:27 | PDOC PROGRESS REPORT ---
Subjective Progress Note for:: 12/31/18 Reason For Visit: S/P RIGHT TOTAL HIP ARTHROPLASTY 12/31/2018 Patient waiting on rehab placement secondary to right hip arthroplasty Physical Exam Vital Signs: Temp Pulse Resp BP Pulse Ox 98.3 F 88 14 140/44 H 93 12/31/18 08:22 12/31/18 09:50 12/31/18 09:50 12/31/18 08:22 12/31/18 09:50 Intake & Output 12/30/18 12/31/18 01/01/19 06:59 06:59 06:59 Intake Total 1820 1720 Output Total 3 Balance 1820 1717 Weight 59.2 kg General appearance: PRESENT: no acute distress Respiratory exam: PRESENT: clear to auscultation rodrigo. ABSENT: rales, rhonchi, wheezes Cardiovascular exam: PRESENT: RRR. ABSENT: diastolic murmur, rubs, systolic murmur Extremities exam: PRESENT: other - Per physical therapy patient ambulates 120 feet Neurological exam: PRESENT: alert, awake, oriented to person, oriented to place, oriented to time, oriented to situation, CN II-XII grossly intact. ABSENT: motor sensory deficit Psychiatric exam: PRESENT: appropriate affect, normal mood. ABSENT: homicidal ideation, suicidal ideation Results Laboratory Results: 12/30/18 08:01 12/30/18 08:01 Impressions: Fluoroscopy 12/28/18 00:00 IMPRESSION: Total hip replacement. Refer to operative note for further information. Hip X-Ray 12/28/18 00:00 IMPRESSION: Total hip replacement. Refer to operative note for further information. Pelvis X-Ray 12/28/18 00:00 IMPRESSION: Satisfactory postoperative right hip. Assessment and Plan - Diagnosis (1) COPD (chronic obstructive pulmonary disease) Qualifiers: COPD type: chronic bronchitis Chronic bronchitis type: simple Qualified Code(s): J41.0 - Simple chronic bronchitis Is this a current diagnosis for this admission?: Yes (2) Gastroesophageal reflux Qualifiers: Esophagitis presence: without esophagitis Qualified Code(s): K21.9 - Gastro-esophageal reflux disease without esophagitis Is this a current diagnosis for this admission?: Yes (3) Status post total hip replacement, right Is this a current diagnosis for this admission?: Yes - Plan Summary Summary: 12/29/2018 Patient remains afebrile, blood pressure appears stable averaging around 145/50 no blood pressure medication Patient's only meds from home appear to be for her COPD Patient's O2 sats remain in the mid 90s on room air. I do not think patient will qualify for home O2, it would be difficult to get a true assessment now that she is recovering from hip surgery with a walker Patient appears as though she will benefit from rehab at the time of discharge. Will follow patient with orthopedics until patient is further stabilized. 12/30/2018 She has 1 more night to night to qualify in hospital for rehab and potential discharge tomorrow Follow orthopedics recommendations concerning wound care We will add patient's nebulizer at the bedside PRN as well as her Adderall 12/31/2018 Physical therapy recommends 1 time every day 7 days/week upon discharge Patient having some diarrhea, will be treated with Lomotil as needed Orthopedics is pleased with her progress Some of discharge aspirin 325 daily for 6 weeks Dressing intact until seen in the office 7 to 10 days May shower with intact dressing, to keep the incision dry Hope fully discharge tomorrow - Time Time Spent with patient: 25-34 minutes
[2018-12-31] MEDS: FAMOTIDINE 20 MG TABLET PO PRN (13:11)
--- NOTE | 2018-12-31 18:48 | PDOC PROGRESS REPORT ---
Subjective Reason For Visit: S/P RIGHT TOTAL HIP ARTHROPLASTY no acute events. doing well. ambulating, pain well controlled. Physical Exam Vital Signs: Temp Pulse Resp BP Pulse Ox 98.1 F 92 20 131/54 H 96 12/31/18 11:38 12/31/18 11:38 12/31/18 11:38 12/31/18 11:38 12/31/18 11:38 Intake & Output 12/30/18 12/31/18 01/01/19 06:59 06:59 06:59 Intake Total 1820 1720 120 Output Total 3 Balance 1820 1717 120 Weight 59.2 kg Physical Exam: patient is alert and or at times three. She is a regular pulse, she has no labored breathing. Shes well nursed and overall in good spirits. Right lower extremjty is grossly NVI. motor function intact. pulses 2+, compartments soft, wound CDI without concern. Results Laboratory Results: 12/30/18 08:01 12/30/18 08:01 Impressions: Fluoroscopy 12/28/18 00:00 IMPRESSION: Total hip replacement. Refer to operative note for further information. Hip X-Ray 12/28/18 00:00 IMPRESSION: Total hip replacement. Refer to operative note for further information. Pelvis X-Ray 12/28/18 00:00 IMPRESSION: Satisfactory postoperative right hip. Assessment & Plan - Diagnosis (1) Status post total hip replacement, right Is this a current diagnosis for this admission?: Yes Plan: plan unchanged from yesterday, she will likely be discharged pending pacement to rehab tomorrow. - Time Time Spent with patient: Less than 15 minutes
[2018-12-31] MEDS: ZOLPIDEM TARTRATE 5 MG TABLET PO PRN (22:04)
[2019-01-01] MEDS: NORMAL SALINE 1000 ML 1,000 ML IV PRN (04:55)
[2019-01-01] MEDS: ACETAMINOPHEN 325 MG TABLET PO SCH ×3 (05:02→21:49)
--- NOTE | 2019-01-01 08:45 | PDOC DISCHARGE SUMMARY ---
Impression - Admit/DC Date/PCP Admission Date/Primary Care Provider: 12/28/18 09:58 Discharge Date: 01/01/19 - Discharge Diagnosis (1) Status post total hip replacement, right Is this a current diagnosis for this admission?: Yes - Assessment Summary: 12/29/2018 Patient remains afebrile, blood pressure appears stable averaging around 145/50 no blood pressure medication Patient's only meds from home appear to be for her COPD Patient's O2 sats remain in the mid 90s on room air. I do not think patient will qualify for home O2, it would be difficult to get a true assessment now that she is recovering from hip surgery with a walker Patient appears as though she will benefit from rehab at the time of discharge. Will follow patient with orthopedics until patient is further stabilized. 12/30/2018 She has 1 more night to night to qualify in hospital for rehab and potential discharge tomorrow Follow orthopedics recommendations concerning wound care We will add patient's nebulizer at the bedside PRN as well as her Adderall 12/31/2018 Physical therapy recommends 1 time every day 7 days/week upon discharge Patient having some diarrhea, will be treated with Lomotil as needed Orthopedics is pleased with her progress Some of discharge aspirin 325 daily for 6 weeks Dressing intact until seen in the office 7 to 10 days May shower with intact dressing, to keep the incision dry Hope fully discharge tomorrow The patient is a pleasant 83-year-old female who is admitted to the hospital status post right total hip arthroplasty for severe degenerative right hip primary osteoarthritis. Following surgery she was admitted for perioperative medical management and pain management. She was then participating with physical therapy and has been doing very well, she is been walking and ultimately feeling better than she did prior to surgery. She does report some continued pain but this is being managed with her current pain management regimen. Over the course of her stay she had no acute events or complications her vital signs remained stable and she was deemed stable for discharge today to rehab pending placement. All postoperative plans were discussed with her in detail in the office, she has received written instructions for both postoperative home activity as well as prescriptions. These were all provided to her in the office. - Additional Information Resuscitation Status: Full Code Discharge Diet: As Tolerated Discharge Activity: Activity As Tolerated, No Driving, No Lifting/Push/Pulling, Slowly Increase Activity, No tub bath, Walk Frequently Home Medications: Aclidinium [place] [Tudorza Pressair] 1 puff IH DAILY 12/28/18 Budesonide/Formoterol Fumarate [Symbicort HFA 160-4.5 mcg Inhaler 6 gm] 2 puff IH Q12 12/28/18 Cholecalciferol (Vitamin D3) [Vitamin D3] 50,000 unit PO FR@1000 12/28/18 Diclofenac Sodium [Voltaren] 1 applic TP QIDP PRN 12/28/18 Diphenhydramine HCl [Benadryl 25 mg Capsule] 25 mg PO DAILYP PRN 12/28/18 Fexofenadine HCl [Daphnie] 180 mg PO DAILYP PRN 12/28/18 Fluticasone Propionate [Flonase Nasal Rickreall 50 Mcg/Rickreall 16 gm] 2 sprays NASL DAILYP PRN 12/28/18 Levalbuterol HCl [Xopenex Neb 0.63 mg/3 ml Ampul] 0.63 mg NEB RTQIDP PRN 12/28/18 Ranitidine HCl [Zantac] 150 mg PO DAILYP PRN 12/28/18 Zolpidem Tartrate [Ambien 5 mg Tablet] 5 mg PO QHS 12/28/18 Acetaminophen [Tylenol 325 mg Tablet] 975 mg PO PREOP PRN tablet 12/29/18 Aclidinium [place] [Tudorza Pressair] 1 puff IH .DAILY 12/29/18 Diphenhydramine HCl [Benadryl 25 mg Capsule] 25 mg PO PRN PRN capsule 12/29/18 Famotidine [Pepcid 20 mg Tablet] 20 mg PO DAILYP PRN tablet 12/29/18 Fluticasone Propionate [Flonase Nasal Rickreall 50 Mcg/Rickreall 16 gm] 2 spray NASL DAILYP PRN spray.pump 12/29/18 Fluticasone/Vilanterol [Breo 200-25 Mcg Ellipta 14 Dose/Dpi] 1 inh IH DAILY inhaler 12/29/18 Gabapentin [Neurontin 100 mg Capsule] 100 mg PO PREOP PRN capsule 12/29/18 Levalbuterol HCl [Xopenex Neb 0.63 mg/3 ml Ampul] 0.63 mg NEB RTQIDP PRN vial.neb 12/29/18 Loratadine [Claritin 10 mg Tablet] 10 mg PO DAILYP PRN tablet 12/29/18 Zolpidem Tartrate [Ambien 5 mg Tablet] 5 mg PO QHS tablet 12/29/18 History of Present Illiness History of Present Illness: RALPH MICHAEL is a 83 year old female Physical Exam Vital Signs: Temp Pulse Resp BP Pulse Ox 97.4 F 86 20 144/52 H 93 01/01/19 00:00 01/01/19 00:00 01/01/19 00:00 01/01/19 00:00 01/01/19 00:00 Intake & Output 12/31/18 01/01/19 01/02/19 06:59 06:59 06:59 Intake Total 1720 470 Output Total 3 Balance 1717 470 Weight 59.2 kg 57.9 kg Results Laboratory Results: WBC 6.3 10^3/uL (4.0-10.5) 12/30/18 08:01 RBC 2.26 10^6/uL (3.72-5.28) L 12/30/18 08:01 Hgb 7.4 g/dL (12.0-15.5) L 12/30/18 08:01 Hct 22.1 % (36.0-47.0) L 12/30/18 08:01 MCV 98 fl (80-97) H 12/30/18 08:01 MCH 32.9 pg (27.0-33.4) 12/30/18 08:01 MCHC 33.7 g/dL (32.0-36.0) 12/30/18 08:01 RDW 13.4 % (11.5-14.0) 12/30/18 08:01 Plt Count 112 10^3/uL (150-450) L 12/30/18 08:01 Lymph % (Auto) 13.4 % (13-45) 12/30/18 08:01 Jack % (Auto) 11.0 % (3-13) 12/30/18 08:01 Eos % (Auto) 6.1 % (0-6) H 12/30/18 08:01 Baso % (Auto) 0.9 % (0-2) 12/30/18 08:01 Absolute Neuts (auto) 4.3 10^3/uL (1.7-8.2) 12/30/18 08:01 Absolute Lymphs (auto) 0.9 10^3/uL (0.5-4.7) 12/30/18 08:01 Absolute Monos (auto) 0.7 10^3/uL (0.1-1.4) 12/30/18 08:01 Absolute Eos (auto) 0.4 10^3/uL (0.0-0.6) 12/30/18 08:01 Absolute Basos (auto) 0.1 10^3/uL (0.0-0.2) 12/30/18 08:01 Seg Neutrophils % 68.6 % (42-78) 12/30/18 08:01 Sodium 138.6 mmol/L (137-145) 12/30/18 08:01 Potassium 3.8 mmol/L (3.6-5.0) 12/30/18 08:01 Chloride 109 mmol/L (98-107) H 12/30/18 08:01 Carbon Dioxide 23 mmol/L (22-30) 12/30/18 08:01 Anion Gap 7 (5-19) 12/30/18 08:01 BUN 13 mg/dL (7-20) 12/30/18 08:01 Creatinine 0.86 mg/dL (0.52-1.25) 12/30/18 08:01 Est GFR ( Amer) > 60 (>60) 12/30/18 08:01 Est GFR (MDRD) Non-Af > 60 (>60) 12/30/18 08:01 Glucose 86 mg/dL (75-110) 12/30/18 08:01 Calcium 8.0 mg/dL (8.4-10.2) L 12/30/18 08:01 Impressions: Fluoroscopy 12/28/18 00:00 IMPRESSION: Total hip replacement. Refer to operative note for further information. Hip X-Ray 12/28/18 00:00 IMPRESSION: Total hip replacement. Refer to operative note for further information. Pelvis X-Ray 12/28/18 00:00 IMPRESSION: Satisfactory postoperative right hip. Stroke Is this a Stroke Patient?: No Acute Heart Failure - Is this a Heart Failure Patient?: No
[2019-01-01] MEDS: ASPIRIN 325 MG TABLET PO SCH ×2 (09:00→09:42)
[2019-01-01] MEDS: GABAPENTIN 100 MG CAPSULE PO SCH ×2 (09:42→19:45)
[2019-01-01] MEDS: FAMOTIDINE 20 MG TABLET PO PRN (09:42)
[2019-01-01] MEDS: CELECOXIB 200 MG CAPSULE PO SCH (09:42)
[2019-01-01] MEDS: POLYETHYLENE GLYCOL 3350 POWDER 17 GM/1 PACKET PO SCH (09:43)
[2019-01-01] MEDS: FLUTICASONE/VILANTEROL 200-25 MCG/DOSE IH SCH (10:00)
--- NOTE | 2019-01-01 12:26 | PDOC PROGRESS REPORT ---
Subjective Progress Note for:: 01/01/19 Reason For Visit: S/P RIGHT TOTAL HIP ARTHROPLASTY 01/01/2019 Patient being seen for medical management, COPD, GERD, physical therapy status post right hip replacement Physical Exam Vital Signs: Temp Pulse Resp BP Pulse Ox 97.4 F 86 20 144/52 H 93 01/01/19 00:00 01/01/19 00:00 01/01/19 00:00 01/01/19 00:00 01/01/19 00:00 Intake & Output 12/31/18 01/01/19 01/02/19 06:59 06:59 06:59 Intake Total 1720 470 Output Total 3 Balance 1717 470 Weight 59.2 kg 57.9 kg General appearance: PRESENT: no acute distress, other - Sleeping but arouses eas shun Respiratory exam: PRESENT: clear to auscultation rodrigo. ABSENT: rales, rhonchi, wheezes Cardiovascular exam: PRESENT: RRR. ABSENT: diastolic murmur, rubs, systolic murmur Neurological exam: PRESENT: alert, awake, oriented to person, oriented to place, oriented to time, oriented to situation, CN II-XII grossly intact. ABSENT: motor sensory deficit Psychiatric exam: PRESENT: appropriate affect, normal mood. ABSENT: homicidal ideation, suicidal ideation Results Laboratory Results: 12/30/18 08:01 12/30/18 08:01 Impressions: Fluoroscopy 12/28/18 00:00 IMPRESSION: Total hip replacement. Refer to operative note for further inform ation. Hip X-Ray 12/28/18 00:00 IMPRESSION: Total hip replacement. Refer to operative note for further information. Pelvis X-Ray 12/28/18 00:00 IMPRESSION: Satisfactory postoperative right hip. Assessment and Plan - Diagnosis (1) COPD (chronic obstructive pulmonary disease) Qualifiers: COPD type: chronic bronchitis Chronic bronchitis type: simple Qualified Code(s): J41.0 - Simple chronic bronchitis Is this a current diagnosis for this admission?: Yes (2) Gastroesophageal reflux Qualifiers: Esophagitis presence: without esophagitis Qualified Code(s): K21.9 - Gastro-esophageal reflux disease without esophagitis Is this a current diagnosis for this admission?: Yes (3) Status post total hip replacement, right Is this a current diagnosis for this admission?: Yes - Plan Summary Summary: 12/29/2018 Patient remains afebrile, blood pressure appears stable averaging around 145/50 no blood pressure medication Patient's only meds from home appear to be for her COPD Patient's O2 sats remain in the mid 90s on room air. I do not think patient will qualify for home O2, it would be difficult to get a true assessment now that she is recovering from hip surgery with a walker Patient appears as though she will benefit from rehab at the time of discharge. Will follow patient with orthopedics until patient is further stabilized. 12/30/2018 She has 1 more night to night to qualify in hospital for rehab and potential discharge tomorrow Follow orthopedics recommendations concerning wound care We will add patient's nebulizer at the bedside PRN as well as her Adderall 12/31/2018 Physical therapy recommends 1 time every day 7 days/week upon discharge Patient having some diarrhea, will be treated with Lomotil as needed Orthopedics is pleased with her progress Some of discharge aspirin 325 daily for 6 weeks Dressing intact until seen in the office 7 to 10 days May shower with intact dressing, to keep the incision dry Hope fully discharge tomorrow The patient is a pleasant 83-year-old female who is admitted to the hospital status post right total hip arthroplasty for severe degenerative right hip primary osteoarthritis. Following surgery she was admitted for perioperative medical management and pain management. She was then participating with physical therapy and has been doing very well, she is been walking and ultimately feeling better than she did prior to surgery. She does report some continued pain but this is being managed with her current pain management regimen. Over the course of her stay she had no acute events or complications her vital signs remained stable and she was deemed stable for discharge today to rehab pending placement. All postoperative plans were discussed with her in detail in the office, she has received written instructions for both postoperative home activity as well as prescriptions. These were all provided to her in the office. 01/01/2019 Patient is medically stable for discharge. Still waiting on acceptance at rehab facility I have read the notes from discharge planning, and I am aware of the family dynamics. - Time Time Spent with patient: 25-34 minutes
--- NOTE | 2019-01-01 19:39 | PDOC PROGRESS REPORT ---
Subjective Progress Note for:: 01/01/19 Subjective:: The patient continues to do well with no new complaints. I explained to her that she will have some pain and she understands this. She has some questions about it but I confirmed that this is normal. Otherwise no acute events overnight Reason For Visit: S/P RIGHT TOTAL HIP ARTHROPLASTY Physical Exam Vital Signs: Temp Pulse Resp BP Pulse Ox 98.5 F 86 17 124/48 L 94 01/01/19 15:23 01/01/19 15:23 01/01/19 15:23 01/01/19 15:23 01/01/19 15:23 Intake & Output 12/31/18 01/01/19 01/02/19 06:59 06:59 06:59 Intake Total 1720 470 760 Output Total 3 Balance 1717 470 760 Weight 59.2 kg 57.9 kg Physical Exam: Alert and oriented x3 Right lower extremity wound is clean dry and intact Right no lower extremity is neurovascular intact, compartments are soft Results Laboratory Results: 12/30/18 08:01 12/30/18 08:01 Impressions: Fluoroscopy 12/28/18 00:00 IMPRESSION: Total hip replacement. Refer to operative note for further information. Hip X-Ray 12/28/18 00:00 IMPRESSION: Total hip replacement. Refer to operative note for further information. Pelvis X-Ray 12/28/18 00:00 IMPRESSION: Satisfactory postoperative right hip. Assessment & Plan - Diagnosis (1) Status post total hip replacement, right Is this a current diagnosis for this admission?: Yes Plan: The patient is doing very well this time she is cleared for discharge but is currently pending placement. Hopefully she will be discharged tomorrow. Otherwise she is weightbearing as tolerated without restrictions, on aspirin for DVT prophylaxis, and on multimodal pain control. - Time Time Spent with patient: Less than 15 minutes
[2019-01-01] MEDS: ZOLPIDEM TARTRATE 5 MG TABLET PO PRN (21:49)
[2019-01-02] MEDS: ACETAMINOPHEN 325 MG TABLET PO SCH ×2 (06:08→16:45)
--- NOTE | 2019-01-02 07:54 | PDOC PROGRESS REPORT ---
Subjective Progress Note for:: 01/02/19 Subjective:: Patient is still doing very well, improving her ambulation and has been working with physical therapy. No changes overnight. Reason For Visit: S/P RIGHT TOTAL HIP ARTHROPLASTY Physical Exam Vital Signs: Temp Pulse Resp BP Pulse Ox 98.1 F 86 17 167/67 H 93 01/02/19 01:07 01/02/19 01:07 01/02/19 01:07 01/02/19 01:07 01/02/19 01:07 Intake & Output 01/01/19 01/02/19 01/03/19 06:59 06:59 06:59 Intake Total 470 1630 Balance 470 1630 Weight 57.9 kg 58.2 kg Physical Exam: Alert and oriented x3, pleasant -Right lower extremity is grossly neurovascular intact, the wound looks great, clean dry and intact, compartments are soft, swelling is minimal, there is some ecchymosis along the medial aspect of the thigh which is within normal limits for this. Postoperatively. Ultimately minimal change in exam from yesterday. Results Laboratory Results: 12/30/18 08:01 12/30/18 08:01 Impressions: Fluoroscopy 12/28/18 00:00 IMPRESSION: Total hip replacement. Refer to operative note for further information. Hip X-Ray 12/28/18 00:00 IMPRESSION: Total hip replacement. Refer to operative note for further information. Pelvis X-Ray 12/28/18 00:00 IMPRESSION: Satisfactory postoperative right hip. Assessment & Plan - Diagnosis (1) Status post total hip replacement, right Is this a current diagnosis for this admission?: Yes Plan: No change in plan of her prior note, she is okay for discharge from an orthopedic standpoint but this is pending plans with the family as well as placement issues with insurance. I will be happy to speak with the family if they need any further guidance or if the find that they are able to help care for her at home, I would consider discharge home. They can call me at [phone] - Time Time Spent with patient: 15-24 minutes
[2019-01-02] MEDS ORDERED: ALBUTEROL SULFATE HFA (90 MCG/PUFF) 200 PUFF/8.5 GM MDI IH PRN (08:59)
[2019-01-02] MEDS: FAMOTIDINE 20 MG TABLET PO PRN (10:06)
[2019-01-02] MEDS: CELECOXIB 200 MG CAPSULE PO SCH (10:06)
[2019-01-02] MEDS: POLYETHYLENE GLYCOL 3350 POWDER 17 GM/1 PACKET PO SCH (10:06)
[2019-01-02] MEDS: GABAPENTIN 100 MG CAPSULE PO SCH (10:06)
[2019-01-02] MEDS: ASPIRIN 325 MG TABLET PO SCH (10:06)
[2019-01-02] MEDS: FLUTICASONE/VILANTEROL 200-25 MCG/DOSE IH SCH (10:07)
--- NOTE | 2019-01-02 10:55 | PDOC PROGRESS REPORT ---
Subjective Progress Note for:: 01/02/19 Reason For Visit: S/P RIGHT TOTAL HIP ARTHROPLASTY 01/02/2019 She is medically stable, as well as post surgically stable for discharge Physical Exam Vital Signs: Temp Pulse Resp BP Pulse Ox 98.6 F 77 18 141/49 H 91 L 01/02/19 07:09 01/02/19 07:09 01/02/19 07:09 01/02/19 07:09 01/02/19 07:09 Intake & Output 01/01/19 01/02/19 01/03/19 06:59 06:59 06:59 Intake Total 470 1630 Balance 470 1630 Weight 57.9 kg 58.2 kg General appearance: PRESENT: no acute distress, other - Patient states she would like to have her Ventolin inhaler to use as needed Respiratory exam: PRESENT: decreased breath sounds, other - Wave are clear no wheezes Cardiovascular exam: PRESENT: RRR. ABSENT: diastolic murmur, rubs, systolic murmur Psychiatric exam: PRESENT: other - Patient seems discouraged by still being here in the hospital, states she is going to go home tomorrow if not placed in a rehab facility Results Laboratory Results: 12/30/18 08:01 12/30/18 08:01 Impressions: Fluoroscopy 12/28/18 00:00 IMPRESSION: Total hip replacement. Refer to operative note for further information. Hip X-Ray 12/28/18 00:00 IMPRESSION: Total hip replacement. Refer to operative note for further information. Pelvis X-Ray 12/28/18 00:00 IMPRESSION: Satisfactory postoperative right hip. Assessment and Plan - Diagnosis (1) COPD (chronic obstructive pulmonary disease) Qualifiers: COPD type: chronic bronchitis Chronic bronchitis type: simple Qualified Code(s): J41.0 - Simple chronic bronchitis Is this a current diagnosis for this admission?: Yes (2) Gastroesophageal reflux Qualifiers: Esophagitis presence: without esophagitis Qualified Code(s): K21.9 - Gastro-esophageal reflux disease without esophagitis Is this a current diagnosis for this admission?: Yes (3) Status post total hip replacement, right Is this a current diagnosis for this admission?: Yes - Plan Summary Summary: 12/29/2018 Patient remains afebrile, blood pressure appears stable averaging around 145/50 no blood pressure medication Patient's only meds from home appear to be for her COPD Patient's O2 sats remain in the mid 90s on room air. I do not think patient will qualify for home O2, it would be difficult to get a true assessment now th at she is recovering from hip surgery with a walker Patient appears as though she will benefit from rehab at the time of discharge. Will follow patient with orthopedics until patient is further stabilized. 12/30/2018 She has 1 more night to night to qualify in hospital for rehab and potential dis charge tomorrow Follow orthopedics recommendations concerning wound care We will add patient's nebulizer at the bedside PRN as well as her Adderall 12/31/2018 Physical therapy recommends 1 time every day 7 days/week upon discharge Patient having some diarrhea, will be treated with Lomotil as needed Orthopedics is pleased with her progress Some of discharge aspirin 325 daily for 6 weeks Dressing intact until seen in the office 7 to 10 days May shower with intact dressing, to keep the incision dry Hope fully discharge tomorrow The patient is a pleasant 83-year-old female who is admitted to the hospital status post right total hip arthroplasty for severe degenerative right hip primary osteoarthritis. Following surgery she was admitted for perioperative medical management and pain management. She was then participating with physical therapy and has been doing very well, she is been walking and ultimately feeling better than she did prior to surgery. She does report some continued pain but this is being managed with her current pain management regimen. Over the course of her stay she had no acute events or complications her vital signs remained stable and she was deemed stable for discharge today to rehab pending placement. All postoperative plans were discussed with her in det ail in the office, she has received written instructions for both postoperative home activity as well as prescriptions. These were all provided to her in the office. 01/01/2019 Patient is medically stable for discharge. Still waiting on acceptance at rehab facility I have read the notes from discharge planning, and I am aware of the family dynamics. 01/02/2019 vital signs are stable this morning blood pressure 141/49, temperature 98.6, pulse 77, O2 sat 91% on room air Patient is getting up with a walker. Patient ambulated 150 feet per day. Physical therapy recommends continued treatments 1 time daily for 7 days/week - Time Time Spent with patient: 15-24 minutes
[2019-01-02 16:56] VITALS: BP 144/52
== END 2019-01-02 17:26 | disposition home health service (06) | DRG 470 ==
LOC: INOR 09:58 → 4S 16:40
PROVIDERS: ADMIT Orthopaedic Surgery; ATTEND Orthopaedic Surgery
PROC: 0SR90JZ Replacement of Right Hip Joint with Synthetic Substitute, Open Approach (ICD-10-PCS; principal; 2018-12-28 12:00)
PROC: 3E0234Z Introduction of Serum, Toxoid and Vaccine into Muscle, Percutaneous Approach (ICD-10-PCS; 2019-01-02)
DX: M16.11 Unilateral primary osteoarthritis, right hip (principal); J41.0 Simple chronic bronchitis; K21.9 Gastro-esophageal reflux disease without esophagitis; Z88.1 Allergy status to other antibiotic agents; Z88.0 Allergy status to penicillin; Z88.2 Allergy status to sulfonamides; Z88.8 Allergy status to other drugs, medicaments and biological substances; Z79.51 Long term (current) use of inhaled steroids; Z79.899 Other long term (current) drug therapy; Z23 Encounter for immunization
CPT/HCPCS: 01214; 36415; 72170; 80048; 85025; 90686; C1776; C1887; J0171; J0690; J1580; J1885; J2250; J2405; J2550; J2704; J3010; J3370; J3490; J7030; J7060; J7120; S0119